=== PATIENT | male | born 1985 | race Hispanic/Latino ===

== ENCOUNTER 2020-04-16 02:26 | Emergency (ER) | payer OTHER ==
[2020-04-16] MEDS ORDERED: LIDOCAINE HCL-MPF 1% 2ML VIAL ONE (02:45)
[2020-04-16] MEDS ORDERED: LIDOCAINE HCL 1% 20 ML VIAL ONE (03:06)
== END 2020-04-16 03:50 | disposition home or self-care (01) ==
LOC: EDH 02:26
DX: S41.112A Laceration without foreign body of left upper arm, initial encounter (principal); X58.XXXA Exposure to other specified factors, initial encounter; Y93.89 Activity, other specified; Y92.89 Other specified places as the place of occurrence of the external cause; Y99.8 Other external cause status
CPT/HCPCS: 12032; 99284; J3490